=== PATIENT | female | born 1930 | race Caucasian/White ===

== ENCOUNTER → 2018-01-03 | Outpatient (CLI) | payer OTHER ==
[~2018-01-03] MED LIST: AMITRIPTYLINE H10 M3 PO; ASA81BEC PO; ASPIRIN325 PO; ATORVASTATIN CA40 MG PO; AZITHROMYCIN 2250 MG PO; CALCIUM + D SO1 EACH PO; CALCIUM 600 +1 EA13 PO; CALCIUM 600 +1 EAC1 PO; COLACE 100 MG100 MG PO; COUMADIN; COUMADIN 4 MG TA4 M1 PO; COUMADIN 5 MG TA5 M1; COUMADIN 5 MG TA5 M1 PO; COUMADIN6 MG PO; COZAAR100 MG PO; D3 + K2 DOTS 11 EACH PO; ENOXAPARIN30 MG/0.3 SUBQ; EVISTA; EVISTA PO; FISH OIL; FISH OIL 1,0001 EAC5 PO; FLEXERIL PO; FLUVIRIN IM; GABAPENTIN 100100 MG PO; GLUCOSAMINE CH1 EAC1 PO; HYDROCODONE-AP1 EAC6 PO; KEFLEX500 M1 PO; KEFLEX500 MG PO; LASIX 40 MG TAB40 M2 PO; LEVAQUIN 750 M750 MG PO; LIDODERM1 EACH TRANSDERM; LYRICA100 MG PO; MAGNESIUM; MAGOX 400400 MG PO; METAMUCIL PAC1 UDPKT PO; MOVE FREE JOIN1 EACH PO; NEURONTIN 400400 M1 PO; NORCO 5-325 TA1 EACH PO; OMEGA-31000 M1 PO; OMEPRAZOLE; OMEPRAZOLE 20 M20 M1 PO; OMEPRAZOLE40 MG PO; OSTEO BI-FLEX1 EAC3 PO; OXYCODONE HCL 55 MG PO; PERCOCET 10-321 EACH PO; POTASSIUM20 PO; PREDNISONE 10 M10 M1 PO; PROBIOTIC1 EAC2 PO; ROXICODONE5 MG PO; SYSTANE ULTRA 010 ML OPHTHALMIC; TRAMADOL 50 MG50 MG PO; TUMS PO; ULTRAM 50MG TAB50 MG PO; VERAPAMIL ER180 MG PO; VERAPAMIL HCL360 MG PO; VERAPAMIL PO; VITAMIN B-12500 MCG PO; VITAMIN D31000 UNI2 PO; VITAMIN D3400 UNIT PO; VITAMINC500 PO; XARELTO10 MG PO; [UNRECOGNIZED DRUG - OTHER]
[2018-01-03 11:16] LABS: ALBUMIN 3.2 g/dL (3.4-5.0); ALKALINE PHOSPHATASE 104 U/L (46-116); CHOLESTEROL 149 mg/dL (<200); DIRECT BILIRUBIN 0.3 mg/dL (<0.1-0.3); HDL CHOLESTEROL 88 mg/dL (>40); LDL CHOLESTEROL 50 mg/dL (<100); SERUM ASSESSMENT Clear; SGOT 32 U/L (15-37); SGPT 30 U/L (30-65); TC:HDL 1.7 Ratio (Not establshd); TOTAL BILIRUBIN 0.8 mg/dL (<0.1-1.0); TRIGLYCERIDE 56 mg/dL (<150); VLDL 11 mg/dL (<40)
== END ==
LOC: M.LAB 10:38
PROVIDERS: Internal Medicine Cardiovascular Disease
DX: E78.00 Pure hypercholesterolemia, unspecified (principal)

== ENCOUNTER → 2018-01-20 | Outpatient (CLI) | payer OTHER | LOC: M.RAD 15:27 | DX: M47.894 Other spondylosis, thoracic region (principal); M51.36 Other intervertebral disc degeneration, lumbar region; M12.88 Other specific arthropathies, not elsewhere classified, other specified site; I51.7 Cardiomegaly; M25.78 Osteophyte, vertebrae ==

== ENCOUNTER 2018-01-29 17:00 | Inpatient (IN) | payer OTHER ==
[~2018-01-29] VITALS: Ht 157.5 cm; Wt 68.0 kg
--- NOTE | ~2018-01-29 | EKG ---
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
[~2018-01-29 17:00] MED LIST changes: -CALCIUM 600 +1 EAC1 PO; -COUMADIN 4 MG TA4 M1 PO; -FLUVIRIN IM; -GABAPENTIN 100100 MG PO; -KEFLEX500 M1 PO; -LASIX 40 MG TAB40 M2 PO; -MOVE FREE JOIN1 EACH PO; -POTASSIUM20 PO; -PROBIOTIC1 EAC2 PO; -TRAMADOL 50 MG50 MG PO; -VITAMIN B-12500 MCG PO; -VITAMIN D3400 UNIT PO; -VITAMINC500 PO
[2018-01-29 17:12] VITALS: BP 215/105
[2018-01-29] MEDS ORDERED: FLUVIRIN IM (17:18)
[2018-01-29] MEDS ORDERED: TRAMADOL 50 MG50 MG PO (17:19)
[2018-01-29 17:58] LABS: ABSOLUTE EOSINOPHILS 0.1 thou/uL (0.0-0.7); ABSOLUTE MONOCYTES 0.7 thou/uL (0.0-1.2); BASOPHILS 0.9 %; EOSINOPHILS 1.1 %; HEMATOCRIT 34.3 % (37.0-47.0); HEMOGLOBIN 11.2 gm/dL (12.0-15.0); LYMPHOCYTES 20.2 %; MCH 26.1 pg (26.0-34.0); MCHC 32.6 g/dL (28.0-37.0); MCV 80.1 fL (80.0-100.0); MONOCYTES 14.8 %; MPV 8.7 fl. (7.2-11.1); NUCLEATED RBCS 0 /100WBC; PLATELET COUNT* 170 thou/uL (150-400); RBC 4.29 mil/uL (4.20-5.00); RDW-CV 20.1 % (10.5-14.5); WBC 4.7 thou/uL (4.0-11.0)
[2018-01-29 18:05] LABS: INR 2.2
[2018-01-29 18:07] LABS: ANION GAP 6 mmol/L (7-16); BUN 15 mg/dL (7-18); CALCIUM 8.7 mg/dL (8.5-10.1); CHLORIDE 107 mmol/L (98-107); CO2 29 mmol/L (21-32); CREATININE 0.7 mg/dL (0.6-1.3); GLUCOSE 103 mg/dL (70-99); POTASSIUM 4.2 mmol/L (3.5-5.1); SODIUM 142 mmol/L (136-145)
[2018-01-29 18:18] LABS: ALKALINE PHOSPHATASE 113 U/L (46-116); LIPASE 112 U/L (73-393); NT-PRO BRAIN NAT PEPTIDE 828 pg/mL (<300); SGOT 38 U/L (15-37); SGPT 34 U/L (30-65); TOTAL BILIRUBIN 0.8 mg/dL (<0.1-1.0); TOTAL PROTEIN 6.4 g/dL (6.4-8.2); TROPONIN-I LEVEL <0.06 ng/mL (<0.06)
[2018-01-29 18:34] LABS: ANISOCYTOSIS 2+; PLATELET ESTIMATE ADEQUATE; POLYCHROMASIA Occasional
[2018-01-29 18:36] LABS: MACROCYTES 1+; POIKILOCYTOSIS 1+
[2018-01-29 18:37] LABS: OVALOCYTES Occasional; SCHISTOCYTES Occasional
[2018-01-29 20:14] VITALS: BP 177/102
[2018-01-29 20:33] VITALS: BP 180/93
[2018-01-29] MEDS ORDERED: VITAMIN B-12500 MCG PO (20:44)
[2018-01-29] MEDS ORDERED: PROBIOTIC1 EAC2 PO (20:45)
[2018-01-30] VITALS (7 sets, daily range): BP systolic 97–156; BP diastolic 54–90
--- NOTE | 2018-01-30 | NUR ---
RECIEVED REPORT FROM YAN FAIR RN, AND ASSUMED CARE OF PATIENT AT 2100 UPON ADMISSION TO ROOM 218. PATIENT INDEPENDENTLY AMBULATED TO UNIT BED WITH NO ISSUES. PATIENT HAS STEADY GAIT, ALTHOUGH SHE REPORTS SHE OCCASIONALLY USES A WALKER AT HOME WHEN SHE FEELS WEAK. PATIENT A&OX4. PATIENT ON 2L O2 NC WITH SATS 97%, IN PLACE DUE TO SHORTNESS OF BREATH WITH EXCERTION. PATIENT DOES NOT WEAR O2 AT HOME. PATIENT VOIDING PER BEDSIDE COMMODE WITH STANDBY ASSIST. PATIENT HAS HAD EXCELLENT OUTPUT SINCE ADMINISTRATION OF LASIX. REFER TO OUTPUT CHARTING. PATIENT ORIENTED TO ROOM AND CALL LIGHT. CALL LIGHT WITHIN REACH. GOAL FOR PATIENT THIS SHIFT IS FOR PATIENT TO CONTINUE TO HAVE GOOD URINE OUTPUT AND O2 SATS REMAIN >92% WITH NO RESPIRATORY DISTRESS. WILL CONTINUE TO MONITOR.
--- NOTE | 2018-01-30 04:37 | NUR ---
PATIENT PROGRESSING TOWARDS GOALS: PATIENT RESPONDED WELL TO THE IV LASIX AND HAS HAD GOOD URINE OUTPUT AND NO RESPIRATORY DISTRESS. PATIENT REMAINS ON 2L O2 WITH SATS >92%. PATIENT HAS RESTED WELL THIS SHIFT. HOURLY ROUNDING OBSERVED. CALL LIGHT WITHIN REACH
[2018-01-30 07:05] LABS: ABSOLUTE BASOPHILS 0.1 thou/uL (0.0-0.2); ABSOLUTE EOSINOPHILS 0.1 thou/uL (0.0-0.7); ABSOLUTE LYMPHOCYTES 1.1 thou/uL (0.8-5.3); ABSOLUTE MONOCYTES 0.7 thou/uL (0.0-1.2); ABSOLUTE NEUTROPHILS 2.9 thou/uL (1.6-8.1); BASOPHILS 1.1 %; EOSINOPHILS 1.6 %; HEMATOCRIT 33.8 % (37.0-47.0); HEMOGLOBIN 11.1 gm/dL (12.0-15.0); LYMPHOCYTES 23.4 %; MCH 25.8 pg (26.0-34.0); MCHC 32.9 g/dL (28.0-37.0); MCV 78.6 fL (80.0-100.0); MONOCYTES 15.3 %; MPV 8.3 fl. (7.2-11.1); NUCLEATED RBCS 0 /100WBC; PLATELET COUNT* 171 thou/uL (150-400); POLYS 58.6 %; RDW-CV 20.2 % (10.5-14.5); WBC 4.9 thou/uL (4.0-11.0)
[2018-01-30 07:15] LABS: INR 1.9; PROTIME 18.2 Seconds (9.20-11.50)
[2018-01-30 07:26] LABS: ANION GAP 6 mmol/L (7-16); BUN 15 mg/dL (7-18); CALCIUM 8.1 mg/dL (8.5-10.1); CHLORIDE 105 mmol/L (98-107); CO2 32 mmol/L (21-32); CREATININE 0.6 mg/dL (0.6-1.3); GLUCOSE 87 mg/dL (70-99); NT-PRO BRAIN NAT PEPTIDE 878 pg/mL (<300); SODIUM 143 mmol/L (136-145); TROPONIN-I LEVEL <0.06 ng/mL (<0.06)
[2018-01-30 07:32] LABS: POTASSIUM 3.1 mmol/L (3.5-5.1)
[2018-01-30 07:41] LABS: ANISOCYTOSIS 2+; HYPOCHROMASIA 3+; PLATELET ESTIMATE ADEQUATE; SCHISTOCYTES 1+
[2018-01-30 07:42] LABS: BURR CELLS Occasional; LARGE PLATELETS FEW; OVALOCYTES Occasional
[2018-01-30] MEDS ORDERED: COUMADIN 4 MG TA4 M1 PO (11:34)
--- NOTE | 2018-01-30 12:56 | NUR ---
ASSUMED CARE OF PT AT 0730. PT RESTING IN BED WAITING FOR BREAKFAST. PT A&0X4. COMPLAINS OF GENERALIZED PAIN AND TO RIGHT ARM. TREATED WITH PRN TYLENOL WITH RELIEF. 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 RATE CONTROLLED. PT ON 2L NC SAT 94%. DENIES ANY SHORTNESS OF BREATH. 2+ EDEMA NOTED TO BILATERAL LE'S. PT UP WITH 1 ASSIST WALKER TO BATHROOM. PT POTASSIUM 3.[address] SAMSON NOTIFIED. ORDERS RECEIVED FOR ELECTROLYTE PROTOCOL. REFER TO EMAR. PT TO HAVE ECHO TODAY. AND DAUGHTER AT BEDSIDE. AM ASSESSMENT CHARTED. MEDICATIONS PER JAN. PT REPOSITIONS SELF. HOURLY ROUNDING OBSERVED. BED IN LOW POSITION. BED ALARM IN PLACE. FALL PRECAUTIONS IN PLACE. CALL LIGHT WITHIN REACH. WILL CONTINUE PLAN OF CARE.
--- NOTE | 2018-01-30 14:37 | NUR ---
CM SPOKE TO THE PATIENT AND HER SPOUSE TO DISCUSS HER HOME SITUATION, DISCHARGE PLANNING NEEDS, AND TO INFORM OF THE ROLE OF CM. PATIENT ALERT, ORIENTED, AND INDEPENDENT WITH ADL'S. PATIENT RESIDES AT [facility] WITH SPOUSE AND HE DOES ALL COOKING, CLEANING, AND DRIVING. PATIENT OWNS A WALKER AND A CANE, BUT HAS BEEN USING THE WALKER AT TIME RECENTLY. PATIENT HAS A HX OF HH, BUT COULD NOT RECALL THE NAME. PATIENT HAS A HX OF SNF AT [facility]. PATIENT PLANS TO RETURN HOME AT D/C. PATIENT IS CURRENTLY ON 2L 02, BUT IT IS NOT CLEAR AT THIS TIME IF IT WILL BE NEEDED AT D/C. CM WILL REMAIN AVAILABLE TO ASSIST AND FOLLOW NEEDED.
--- NOTE | 2018-01-30 15:52 | 2DMMODE ---
[place] [address] 2 D/M-MODE ECHOCARDIOGRAM Name: FRANCA GUERRA Room: [address] IN [facility]#: [id number] Admission: 01/29/18 Attend Phys: El Pugh, Discharge: Date of : [birth year] Date of Service: 01/30/18 1552 Report #: [id number] THIS REPORT FOR: //name// APPROVED REPORT Study performed: 01/30/2018 10:53:14 EXAM: Comprehensive 2D, Doppler, and color-flow Echocardiogram Patient Location: In-Patient Room #[facility] Status: routine BSA: 1.74 HR: 72 bpm BP: 156/90 mmHg Rhythm: Atrial Fibrillation Other Information Study Quality: Good Indications Congestive Heart Failure Atrial Fibrillation 2D Dimensions LVEF(%): 71.79 (>50%) IVSd: 16.29 (7-11mm) LVOT Diam: 20.21 (18-24mm) LVDd: 29.60 mm PWd: 16.15 (7-11mm) Ascending Ao: 36.45 (22-36mm) LVDs: 17.88 (25-40mm) Aortic Root: 36.40 mm Obrien's LVEF: 71.79 % Volumes Left Atrial Volume (Systole) LA ESV Index: 58.10 mL/m2 Aortic Valve AoV Peak Talon.: 2.11 m/s AO Peak Gr.: 17.78 mmHg LVOT Max P.67 mmHg AO Mean Gr.: 10.31 mmHg LVOT Mean P.05 mmHg LVOT Max V: 0.96 m/s AO V2 VTI: 38.43 cm LVOT Mean V: 0.67 m/s SHASTA (VTI): 1.65 cm2 LVOT V1 VTI: 19.80 [place] [address] 2 D/M-MODE ECHOCARDIOGRAM Name: FRANCA GUERRA Room: [address] IN [facility]#: [id number] Admission: 01/29/18 Attend Phys: El Pugh, Discharge: Date of : [birth year] Date of Service: 01/30/18 1552 Report #: [id number] MV Decel. Time: 207.06 ms MV PHT: 60.05 ms MVA (PHT): 3.66 cm2 TDI Medial E' Talon.: 0.12 m/s Lateral E' Talon.: 0.11 m/s Pulmonary Valve PV Peak Talon.: 1.00 m/s PV Peak Gr.: 3.97 mmHg Tricuspid Valve TR Peak Gr.: 29.80 mmHg RVSP: 39.00 mmHg Left Ventricle The left ventricle is normal size. There is normal LV segmental wall motion. Moderate concentric left ventricular hypertrophy. Left ventricular systolic function is normal. The left ventricular ejection fraction is within the normal range. LVEF is 65%. This study is not technically sufficient to allow evaluation of the LV diastolic function due to atrial fibrillation. Right Ventricle The right ventricle is normal size. The right ventricular systolic function is normal. Atria Left atrium is moderately dilated. Right atrium is severely dilated. Aortic Valve Moderate aortic valve sclerosis. No aortic regurgitation is present. Mild aortic stenosis. Mitral Valve There is mitral annular calcification. Trace mitral regurgitation. No evidence of mitral valve stenosis. Tricuspid Valve The tricuspid valve is normal in structure. Mild tricuspid regurgitation. The RVSP is 35-40 mmHg. Pulmonic Valve The pulmonary valve is normal in structure. There is no pulmonic [place] [address] 2 D/M-MODE ECHOCARDIOGRAM Name: FRANCA GUERRA Room: [address]#: [id number] Admission: 01/29/18 Attend Phys: El Pugh, Discharge: Date of : [birth year] Date of Service: 01/30/18 1552 Report #: [id number] Great Vessels The aortic root is normal in size. IVC is dilated. Pericardium There is no pericardial effusion. <Conclusion> The left ventricle is normal size. Moderate concentric left ventricular hypertrophy. Left ventricular systolic function is normal. The left ventricular ejection fraction is within the normal range. LVEF is 65%. This study is not technically sufficient to allow evaluation of the LV diastolic function due to atrial fibrillation. The right ventricle is normal size. Left atrium is moderately dilated. Right atrium is severely dilated. Moderate aortic valve sclerosis. No aortic regurgitation is present. Mild aortic stenosis. There is mitral annular calcification. Trace mitral regurgitation. No evidence of mitral valve stenosis. The tricuspid valve is normal in structure. Mild tricuspid regurgitation. The RVSP is 35-40 mmHg. IVC is dilated. There is no pericardial effusion. There is normal LV segmental wall motion. <ELECTRONICALLY SIGNED> By: Elmo Robbins MD, FACC 01/30/18 [phone] Elmo Robbins MD, FACC /INF
--- NOTE | 2018-01-30 18:46 | NUR ---
NO ACUTE CHANGES THROUGHOUT SHIFT. REFER TO CHARTING. PT RECEIVED IV LASIX. UP TO BATHROOM WITH 1 ASSIST AND WALKER. PT DISCONTINUED IV TO RIGHT HAND. NEW IV PLACED TO LEFT HAND-20 G SL. PT HAD ECHO TODAY. EF 65%. PT DENIES ANY SHORTNESS OF BREATH OR PAIN THIS AFTERNOON. 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 RATE CONTROLLED. ON 2L NC SAT UPPER 90'S. FAMILY AT BEDSIDE THIS AFTERNOON VISITING. POTASSIUM BEING REPLACED PER ELECTROLYTE PROTOCOL. REFER TO EMAR. REDRAW SCHEDULED FOR 2299. MEDICATIONS PER JAN. PT REPOSITIONS SELF. HOURLY ROUNDING OBSERVED. BED IN LOW POSITION. BED ALARM IN PLACE. FALL PRECAUTIONS IN PLACE. CALL LIGHT WITHIN REACH. WILL CONTINUE PLAN OF CARE.
[2018-01-31 04:33] VITALS: BP 118/69
[2018-01-31 04:52] LABS: ABSOLUTE EOSINOPHILS 0.1 thou/uL (0.0-0.7); ABSOLUTE LYMPHOCYTES 1.3 thou/uL (0.8-5.3); ABSOLUTE MONOCYTES 0.7 thou/uL (0.0-1.2); ABSOLUTE NEUTROPHILS 2.7 thou/uL (1.6-8.1); BASOPHILS 0.7 %; EOSINOPHILS 1.5 %; HEMATOCRIT 33.5 % (37.0-47.0); MCH 25.9 pg (26.0-34.0); MCHC 32.7 g/dL (28.0-37.0); MCV 79.2 fL (80.0-100.0); MONOCYTES 14.4 %; MPV 8.4 fl. (7.2-11.1); NUCLEATED RBCS 0 /100WBC; PLATELET COUNT* 173 thou/uL (150-400); POLYS 56.4 %; RBC 4.23 mil/uL (4.20-5.00); RDW-CV 20.1 % (10.5-14.5); WBC 4.8 thou/uL (4.0-11.0)
[2018-01-31 05:00] LABS: INR 1.6; PROTIME 15.4 Seconds (9.20-11.50)
[2018-01-31 05:11] LABS: ALBUMIN 2.9 g/dL (3.4-5.0); CALCIUM 8.5 mg/dL (8.5-10.1); CREATININE 0.7 mg/dL (0.6-1.3); POTASSIUM 3.9 mmol/L (3.5-5.1)
--- NOTE | 2018-01-31 06:07 | NUR ---
Pt reports she got some sleep, but not quite to her satisfaction. VSS. Afib per monitor, rate 60s-70s. States she hopes to be discharged very soon because she misses her . Will continue to monitor.
[2018-01-31 06:29] LABS: PLATELET ESTIMATE ADEQUATE; TARGET CELLS Occasional
[2018-01-31 06:30] LABS: ANISOCYTOSIS 1+; HYPOCHROMASIA 1+; POIKILOCYTOSIS 1+
[2018-01-31 08:01] VITALS: BP 117/75
--- NOTE | 2018-01-31 10:13 | NUR ---
ASSUMED CARE OF PATIENT AFTER REPORT THIS MORNING. PATIENT AWAKE, ALERT, AND ORIENTED APPROPRIATELY. PHYSICAL ASSESSMENT COMPLETED AND CHARTED. NO COMPLAINTS OF PAIN. GIVEN SCHEDULED MEDICATIONS, SEE EMAR FOR DOCUMENTATION. VITAL SIGNS STABLE. OXYGEN SATURATION WITHIN NORMAL LIMITS ON ROOM AIR. MADE NPO FOR CT OF CHEST THIS AFTERNOON. PATIENT AWARE AND UNDERSTANDS LIMITATIONS. IN ROOM. PATIENT TRANSFERS AND AMBULATES WITH ASSISTANCE FROM STAFF. FORGETS LIMITATION REGARDING BED ALARM. REMINDED BUT REMAINS FORGETFUL. USES CALL LIGHT, MOSTLY APPROPRIATELY. DENIES NEEDS AT THIS TIME. CALL LIGHT WITHIN REACH. NURSING WILL CONTINUE TO MONITOR.
[2018-01-31 11:45] VITALS: BP 110/65
[2018-01-31] MEDS ORDERED: LASIX 40 MG TAB40 M2 PO (14:52)
[2018-01-31] MEDS ORDERED: POTASSIUM20 PO (14:55)
--- NOTE | 2018-01-31 15:24 | NUR ---
CALLED PHYSICIAN WITH CT CHEST SCAN RESULTS. RECEIVED ORDERS TO DISCHARGE PATIENT HOME. NURSING WILL CONTINUE TO MONITOR UNTIL DISCHARGE.
[2018-01-31 15:35] VITALS: BP 129/71
--- NOTE | 2018-01-31 16:09 | NUR ---
DISCHARGE PAPERWORK COMPLETED AND SIGNED BY ALL APPROPRIATE PARTIES, ON PATIENT'S CHART. IV DISCONTINUED. GIVEN PRESCRIPTIONS FOR LASIX AND POTASSIUM. DISCUSSED EDUCATION REGARDING THESE MEDICATIONS. ANSWERED ANY AND ALL QUESTIONS. PATIENT DISCHARGED AT 1605. ESCORTED VIA WHEELCHAIR TO FRONT DOOR BY THIS NURSE.
== END 2018-01-31 16:05 | disposition home or self-care (01) | DRG 291 ==
LOC: M.ERS 17:00 → M.2W 18:31 → M.TBA-ER 18:31 → M.2W 20:41
PROVIDERS: Emergency Medicine; ADMIT Internal Medicine
DX: I11.0 Hypertensive heart disease with heart failure (principal); J96.00 Acute respiratory failure, unspecified whether with hypoxia or hypercapnia; J90 Pleural effusion, not elsewhere classified; I50.33 Acute on chronic diastolic (congestive) heart failure; K21.9 Gastro-esophageal reflux disease without esophagitis; M81.0 Age-related osteoporosis without current pathological fracture; M19.90 Unspecified osteoarthritis, unspecified site; Z96.651 Presence of right artificial knee joint; Z88.6 Allergy status to analgesic agent; I48.91 Unspecified atrial fibrillation; Z98.42 Cataract extraction status, left eye; Z98.41 Cataract extraction status, right eye; Z79.899 Other long term (current) drug therapy; Z79.82 Long term (current) use of aspirin

== ENCOUNTER 2018-04-27 09:09 | Emergency (ER) | payer OTHER ==
[~2018-04-27] VITALS: Ht 162.6 cm; Wt 76.4 kg
[~2018-04-27 09:09] MED LIST changes: +COUMADIN 4 MG TA4 M1 PO; +FLUVIRIN IM; +LASIX 40 MG TAB40 M2 PO; +POTASSIUM20 PO; +PROBIOTIC1 EAC2 PO; +TRAMADOL 50 MG50 MG PO; +VITAMIN B-12500 MCG PO
[2018-04-27] MEDS ORDERED: GABAPENTIN 100100 MG PO (09:20)
[2018-04-27] MEDS ORDERED: CALCIUM 600 +1 EAC1 PO (09:22)
[2018-04-27] MEDS ORDERED: VITAMINC500 PO (09:23)
[2018-04-27] MEDS ORDERED: VITAMIN D3400 UNIT PO (09:25)
[2018-04-27] MEDS ORDERED: MOVE FREE JOIN1 EACH PO (09:28)
[2018-04-27 09:45] LABS: INR 1.2; PROTIME 11.6 Seconds (9.20-11.50)
[2018-04-27] MEDS ORDERED: KEFLEX500 M1 PO (11:58)
[2018-04-27 12:25] VITALS: BP 178/112
== END 2018-04-27 12:26 | disposition home or self-care (01) ==
LOC: M.ERS 09:09
PROVIDERS: Emergency Medicine Emergency Medical Services
DX: S01.81XA Laceration without foreign body of other part of head, initial encounter (principal); K21.9 Gastro-esophageal reflux disease without esophagitis; I10 Essential (primary) hypertension; I48.91 Unspecified atrial fibrillation; Z88.6 Allergy status to analgesic agent; W01.0XXA Fall on same level from slipping, tripping and stumbling without subsequent striking against object, initial encounter; Y93.89 Activity, other specified; Y92.89 Other specified places as the place of occurrence of the external cause; Y99.8 Other external cause status